=== PATIENT | female | born 1995 | race African-American/Black ===

== ENCOUNTER 2016-07-19 15:50 | Emergency (ER) | payer OTHER ==
[2016-07-19 16:16] VITALS: BP 111/97; PULSE 85; TEMP 98.3; BMI 25.7
--- NOTE | 2016-07-19 16:32 | PDOC ---
History of Present Illness <Becca Goodman - Last Filed: 07/19/16 21:22> - General History Source: Patient, Significant Other, Friend - History of Present Illness Initial Comments: 07/19/16 21:41 The patient is a 21 year old female, 7 weeks , accompanied by boyfriend and friend, with no significant past medical history, who presents to the emergency department today for further evaluation of cramping and vaginal bleeding secondary to taking an pill on Tuesday. The patient states that since Tuesday she had a change of heart and was hoping that the was not successful. The patient also notes that she has been taking a prescription of progesterone that she acquired online. The patient denies fever, chills, and sweats. The patient denies nausea, vomiting, and diarrhea. The patient denies chest pain, cough, and shortness of breath. PAST MEDICAL HISTORY: A1 PAST SURGICAL HISTORY: No significant history reported FAMILY HISTORY: No pertinent history reported SOCIAL HISTORY: None reported MEDICATIONS: Reviewed ALLERGIES: NKDA <Anthony Blair - Last Filed: 07/19/16 21:42> - General Chief Complaint: Vaginal Bleeding Stated Complaint: VAGINAL BLEEDING, 7 WKS Time Seen by Provider: 07/19/16 16:32 Past History - Past Medical History Anemia: No Asthma: No Cancer: No Cardiac Disorders: No Diabetes: No HTN: No Seizures: No Thyroid Disease: No - Reproductive History (#): 1 Para: 0 - Immunization History Immunization Up to Date: Yes - Psycho/Social/Smoking Cessation Hx Anxiety: No Suicidal Ideation: No Smoking Status: No Smoking History: Never smoked Have you smoked in the past 12 months: No Number of Cigarettes Smoked Daily: 0 Cigars Per Day: 0 Information on smoking cessation initiated: No Hx Alcohol Use: No Drug/Substance Use Hx: No Substance Use Type: None Hx Substance Use Treatment: No <Becca Goodman - Last Filed: 07/19/16 21:22> <Anthony Blair - Last Filed: 07/19/16 21:42> - Past Medical History Allergies/Adverse Reactions: Allergies Allergy/AdvReac Type Severity Reaction Status Date / Time No Known Allergies Allergy Verified 07/19/16 16:16 Home Medications: Ambulatory Orders Progesterone,Micronized [Progesterone] 200 mg PO DAILY 07/19/16 Review of Systems - Review of Systems Able to Perform ROS?: Yes Comments:: CONSTITUTIONAL: Absent: fever, chills, diaphoresis, generalized weakness, malaise, loss of appetite HEENT: Absent: rhinorrhea, nasal congestion, throat pain, throat swelling, difficulty swallowing, mouth swelling, ear pain, eye pain, visual Changes CARDIOVASCULAR: Absent: chest pain, syncope, palpitations, irregular heart rate, lightheadedness , peripheral edema RESPIRATORY: Absent: cough, shortness of breath, dyspnea with exertion, orthopnea, wheezing, stridor, hemoptysis GASTROINTESTINAL: Present: Abdominal cramping Absent: abdominal distension, nausea, vomiting, diarrhea, constipation, melena, hematochezia GENITOURINARY: Absent: dysuria, frequency, urgency, hesitancy, hematuria, flank pain, genital pain MUSCULOSKELETAL: Absent: myalgia, arthralgia, joint swelling SKIN: Absent: rash, itching, pallor HEMATOLOGIC/IMMUNOLOGIC: Present: Vaginal bleeding. Absent: easy bleeding, easy bruising, lymphadenopathy, frequent infections ENDOCRINE: Absent: unexplained weight gain, unexplained weight loss, heat intolerance, cold intolerance NEUROLOGIC: Absent: headache, focal weakness or paresthesias, dizziness, unsteady gait, seizure, mental status changes, bladder or bowel incontinence PSYCHIATRIC: Absent: anxiety, depression, suicidal or homicidal ideation, hallucinations. <Anthony Blair - Last Filed: 07/19/16 21:42> *Physical Exam - Vital Signs Last Vital Signs Temp Pulse Resp BP Pulse Ox 98.3 F 85 18 111/97 99 07/19/16 16:13 07/19/16 16:13 07/19/16 16:13 07/19/16 16:13 07/19/16 16:13 <Becca Goodman - Last Filed: 07/19/16 21:22> - Vital Signs Last Vital Signs Temp Pulse Resp BP Pulse Ox 98.3 F 85 18 111/97 99 07/19/16 16:13 07/19/16 16:13 07/19/16 16:13 07/19/16 16:13 07/19/16 16:13 - Physical Exam Comments: GENERAL: Well developed, well nourished. Awake and alert. No acute distress. HEENT: Normocephalic, atraumatic. PERRLA, EOMI. No conjunctival pallor. Sclera are non- icteric. Moist mucous membranes. Oropharynx is clear. NECK: Supple. Full ROM. No JVD. Carotid pulses 2+ and symmetric, without bruits. No thyromegaly. No lymphadenopathy. CARDIOVASCULAR: Regular rate and rhythm. No murmurs, rubs, or gallops. Distal pulses are 2+ and symmetric. PULMONARY: No evidence of respiratory distress. Lungs clear to auscultation bilaterally. No wheezing, rales or rhonchi. ABDOMINAL: Soft. Non-tender. Non-distended. No rebound or guarding. No organomegaly. Normoactive bowel sounds. MUSCULOSKELETAL Normal range of motion at all joints. No bony deformities or tenderness. No CVA tenderness. EXTREMITIES: No cyanosis. No clubbing. No edema. No calf tenderness. SKIN: Warm and dry. Normal capillary refill. No rashes. No jaundice. NEUROLOGICAL: Alert, awake, appropriate. Cranial nerves 2-12 intact. No deficits to light touch and temperature in face, upper extremities and lower extremities. No motor deficits in the in face, upper extremities and lower extremities. Normoreflexic in the upper and lower extremities. Normal speech. Toes are down-going bilaterally. Gait is normal without ataxia. PSYCHIATRIC: Cooperative. Good eye contact. Appropriate mood and affect. <Anthony Blair - Last Filed: 07/19/16 21:42> ED Treatment Course - LABORATORY CBC & Chemistry Diagram: 07/19/16 17:10 <Becca Goodman - Last Filed: 07/19/16 21:22> - LABORATORY CBC & Chemistry Diagram: 07/19/16 17:10 - ADDITIONAL ORDERS Additional order review: Laboratory Results 07/19/16 07/19/16 17:10 17:10 Beta HCG, Quant 68070.1 Blood Type O POSITIVE Antibody Screen Negative 07/19/16 17:10 RBC 4.08 MCV 93.1 MCHC 33.6 RDW 12.4 D MPV 7.4 L Neutrophils % 69.1 Lymphocytes % 21.1 D Monocytes % 6.4 Eosinophils % 2.4 D Basophils % 1.0 D - RADIOLOGY Radiograph Interpretation: 07/19/16 21:21 EXAM#: TYPE/EXAM: RESULT: [id number] US/ <14WKS US HISTORY PROVIDED: evaluation. Real time examination of the pelvis demonstrates the following: There is a single, live intrauterine with crown-rump measurements corresponding to a gestational age of 8 weeks. A heart rate of 171 BPM was calculated. The ovaries are normal in size and texture with a small right ovarian cyst measuring 2.3 x 1.7 x 1.8 cm. There is no evidence of adnexal masses or free pelvic fluid collections. IMPRESSION: Single, live intrauterine of 8 weeks gestational age. Reported By: Nelson Maharaj MD 07/19/162111 <nAthony Blair - Last Filed: 07/19/16 21:42> Medical Decision Making - Medical Decision Making 07/19/16 21:35 Patient was fully informed that she has a live fetus and that her was not successful. <Anthony Blair - Last Filed: 07/19/16 21:42> *DC/Admit/Observation/Transfer <Becca Goodman - Last Filed: 07/19/16 21:22> - Attestations Scribe Attestion: Documentation prepared by Anthony Blair, acting as medical office receptionist assistant for Dr. Becca Goodman MD. <Anthony Blair - Last Filed: 07/19/16 21:42> Diagnosis at time of Disposition: Threatened - Discharge Dispostion Disposition: HOME Condition at time of disposition: Stable - Patient Instructions Printed Discharge Instructions: DI for Threatened Additional Instructions: continue care with metal bumper
[2016-07-19 17:20] LABS: EOSINOPHIL 2.4 % (0-4.5); MCH 31.3 pg (25.7-33.7); MCHC 33.6 g/dl (32.0-36.0); MEAN CELL VOLUME 93.1 fl (80-96); MEAN PLT VOLUME 7.4 fl (7.5-11.1); NEUTROPHILS 69.1 % (42.8-82.8); PLATELET COUNT 295 K/MM3 (134-434); RDW 12.4 % (11.6-15.6); WHITE BLOOD COUNT 12.5 K/mm3 (4.0-10.0)
== END 2016-07-19 21:55 | disposition home or self-care (01) ==
LOC: JER 15:50
DX: O20.0 Threatened abortion (principal); Z3A.01 Less than 8 weeks gestation of pregnancy
CPT/HCPCS: 36415; 76801-TC; 84702; 85025; 86850; 86900; 86901; 99282-25

== ENCOUNTER 2016-07-25 13:18 | Emergency (ER) | payer OTHER ==
[2016-07-25 13:36] VITALS: BMI 26.2
[2016-07-25 14:46] LABS: BASOPHIL 0.9 % (0-2.0); EOSINOPHIL 1.2 % (0-4.5); MCHC 33.3 g/dl (32.0-36.0); MEAN CELL VOLUME 93.1 fl (80-96); MEAN PLT VOLUME 6.9 fl (7.5-11.1); NEUTROPHILS 74.5 % (42.8-82.8); PLATELET COUNT 246 K/MM3 (134-434); WHITE BLOOD COUNT 12.1 K/mm3 (4.0-10.0)
[2016-07-25 15:02] LABS: ALBUMIN 3.6 g/dl (3.4-5.0); ALK PHOS 63 U/L (45-117); ANION GAP 12 (8-16); BILIRUBIN,TOTAL 0.3 mg/dL (0.2-1.0); CALCIUM 9.2 mg/dL (8.5-10.1); CO2 25 mmol/L (21-32); COCKROFT - GAULT 153.1445; CREATININE 0.6 mg/dL (0.55-1.02); GLUCOSE,RANDOM 62 mg/dL (74-106); SGOT/AST 17 U/L (15-37); SGPT/ALT 29 U/L (12-78); TOT PROT 6.4 g/dl (6.4-8.2)
--- NOTE | 2016-07-25 16:23 | PDOC ---
History of Present Illness - General Chief Complaint: Vaginal Bleeding Stated Complaint: BLEEDING 8 WEEKS Time Seen by Provider: 07/25/16 13:39 - History of Present Illness Initial Comments: 07/25/16 16:22 CHIEF COMPLAINT: vag discharge, 8 wks preg HISTORY OF PRESENT ILLNESS: 21 yo F with no PMH presents to ED with foul smelling vaginal discharge x 4 days. Patient reports that she had a retained tampon a few weeks prior and had it removed at another hospital and was "given a cream" but no other medications. Patient also reports that she had taken " the pill" 8 days ago but then on the same day started taking progesterone "to keep the baby." She reports that she was supposed to get an ultrasound on August 16 per her OB but she didn't want to wait any longer "because the smell was too bad." She denies any vaginal bleeding, cramping, abdominal pain, nausea, or vomiting. No recent travel or sick contacts. PAST MEDICAL HISTORY: Denies past medical history FAMILY HISTORY: Denies SOCIAL HISTORY: Denies tobacco, alcohol, illicit drug use. SURGICAL HISTORY: Denies ALLERGIES: No known drug allergies REVIEW OF SYSTEMS General/Constitutional: Denies fever or chills. Denies weakness, weight change. HEENT: Denies change in vision. Denies ear pain or discharge. Denies sore throat. Cardiovascular: Denies chest pain or shortness of breath. Respiratory: Denies cough, wheezing, or hemoptysis. Gastrointestinal: Denies nausea, vomiting, diarrhea or constipation. Denies rectal bleeding. Genitourinary: "Foul smelling discharge." Denies dysuria, frequency, or change in urination. Musculoskeletal: Denies joint or muscle swelling or pain. Denies neck or back pain. Skin and breasts: Denies rash or easy bruising. Neurologic: Denies headache, vertigo, loss of consciousness, or loss of sensation. PHYSICAL EXAM General Appearance: Well-appearing, appropriately dressed. No apparent distress , no intoxication. HEENT: EOMI, PERRLA, normal ENT inspection, normal voice, TMs normal, pharynx normal. No conjunctival pallor. No photophobia, scleral icterus. Neck: Supple. Trachea midline. No tenderness, rigidity, carotid bruit, stridor , lymphadenopathy, or thyromegaly. Respiratory/Chest: Lungs CTAB. No shortness of breath, chest tenderness, respiratory distress, accessory muscle use. No crackles, rales, rhonchi, stridor , wheezing, dullness Cardiovascular: RRR. S1, S2. No JVD, murmur, bradycardia, tachycardia. Vascular Pulses: Dorsalis-Pedis (R): 2+, Dorsalis-Pedis (L): 2+ Gastrointestinal/Abdominal: Normal bowel sounds. Abdomen soft, non-distended. No tenderness or rebound tenderness. No organomegaly, pulsatile mass, guarding , hernia, hepatomegaly, splenomegaly. Pelvic: External genitalia normal without lesions. Vaginal vault with malodorous, light pink/brown discharge. Cervix is long and closed. No cervical motion tenderness. Uterus is nontender and normal in size. Adnexa are nontender and without masses. Lymphatic: No adenopathy, tenderness. Musculoskeletal/Extremities: Normal inspection. FROM of all extremities, normal capillary refill. Pelvis Stable. No CVA tenderness. No tenderness to extremities, pedal edema, swelling, erythema or deformity. Integumentary: Appropriate color, dry, warm. 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 Fully oriented, alert. Appropriate mood/affect. Motor strength 5/5. No appreciable EOM palsy, facial droop or sensory deficit. Past History - Past Medical History Allergies/Adverse Reactions: Allergies Allergy/AdvReac Type Severity Reaction Status Date / Time No Known Allergies Allergy Verified 07/25/16 13:36 Home Medications: Ambulatory Orders Progesterone,Micronized [Progesterone] 200 mg PO DAILY 07/19/16 Metronidazole [Flagyl -] 500 mg PO DAILY #14 tablet 07/25/16 Anemia: No Asthma: No Cancer: No Cardiac Disorders: No Diabetes: No HTN: No Seizures: No Thyroid Disease: No - Reproductive History Is Patient Now?: Yes (#): 2 Para: 1 - Immunization History Immunization Up to Date: Yes - Psycho/Social/Smoking Cessation Hx Anxiety: No Suicidal Ideation: No Smoking Status: No Smoking History: Never smoked Have you smoked in the past 12 months: No Number of Cigarettes Smoked Daily: 0 Cigars Per Day: 0 Hx Alcohol Use: No Drug/Substance Use Hx: No Substance Use Type: None Hx Substance Use Treatment: No *Physical Exam - Vital Signs Last Vital Signs Temp Pulse Resp BP Pulse Ox 98.0 F 104 H 20 144/50 99 07/25/16 13:32 07/25/16 13:32 07/25/16 13:32 07/25/16 13:32 07/25/16 13:32 ED Treatment Course - LABORATORY CBC & Chemistry Diagram: 07/25/16 14:30 07/25/16 14:30 - ADDITIONAL ORDERS Additional order review: Laboratory Results 07/25/16 07/25/16 07/25/16 14:30 14:30 14:30 Sodium 140 Potassium 4.0 Chloride 103 Carbon Dioxide 25 Anion Gap 12 BUN 9 Creatinine 0.6 D Creat Clearance w eGFR > 60 Random Glucose 62 L D Calcium 9.2 Total Bilirubin 0.3 AST 17 D ALT 29 D Alkaline Phosphatase 63 Total Protein 6.4 Albumin 3.6 Beta HCG, Quant 207206.9 Blood Type O POSITIVE Antibody Screen Negative 07/25/16 14:30 RBC 4.11 MCV 93.1 MCHC 33.3 RDW 12.0 MPV 6.9 L Neutrophils % 74.5 Lymphocytes % 17.5 Monocytes % 5.9 Eosinophils % 1.2 Basophils % 0.9 - RADIOLOGY Radiology Studies Ordered: Category Date Time Status TRANSVAGINAL US PREG [US] Stat Ultrasound 07/25/16 14:13 Taken Medical Decision Making - Medical Decision Making 07/25/16 18:13 21 yo F with no PMH presents to ED with foul smelling vaginal discharge x 4 days. -CBC, CMP, T&S -Transvaginal US 07/25/16 18:13 Discussed ultrasound results with radiology MD Scales. IUP confirmed, 9 week gestation. Clinical presentation consistent with BV. Will treat with Flagyl 500 bid x 1 week. Advised patient to take meds as prescribed and follow up with OB by the end of the week. Referral for OB provided as patient reports she would like to change OBS. Advised patient of signs and symptoms for return to ER; patient verbalized understanding and agrees to plan *DC/Admit/Observation/Transfer Diagnosis at time of Disposition: Bacterial vaginosis - Discharge Dispostion Disposition: HOME Condition at time of disposition: Stable Admit: No - Prescriptions Prescriptions: Metronidazole [Flagyl -] 500 mg PO DAILY #14 tablet - Referrals Referrals: Patti Tran MD [Primary Care Provider] - Arsh Seth MD [Staff Physician] - - Patient Instructions Printed Discharge Instructions: DI for Bacterial Vaginosis Additional Instructions: Please take medication as prescribed and follow up with gynecology as discussed. If you experience any abdominal pain, chest pain, shortness of breath, palpitations, vaginal bleeding, or any new or worsening symptoms, please return to the ER.
[2016-07-25] MEDS ORDERED: metroNIDAZOLE 500 MG TABLET PO ONE (17:02)
[2016-07-25] MEDS ORDERED: metroNIDAZOLE 250 MG TABLET ONE (17:07)
[2016-07-25 17:51] VITALS: BP 123/78; PULSE 98; TEMP 97.9
== END 2016-07-25 17:15 | disposition home or self-care (01) ==
LOC: JER 13:18
DX: O23.592 Infection of other part of genital tract in pregnancy, second trimester (principal); N76.0 Acute vaginitis; B96.89 Other specified bacterial agents as the cause of diseases classified elsewhere; Z3A.09 9 weeks gestation of pregnancy
CPT/HCPCS: 36415; 76817-TC; 80053; 84702; 85025; 86850; 86900; 86901; 87070; 87205; 99281-25

== ENCOUNTER 2017-01-05 14:31 | Emergency (ER) | payer OTHER ==
[2017-01-05 14:36] VITALS: BMI 31.5
[2017-01-05 16:09] LABS: URINE APPEARANCE SLCLOUDY; URINE BILIRUBIN NEGATIVE (NEGATIVE); URINE BLOOD NEGATIVE (NEGATIVE); URINE COLOR YELLOW; URINE GLUCOSE (UA) NEGATIVE (NEGATIVE); URINE KETONE NEGATIVE (NEGATIVE); URINE NITRITE NEGATIVE (NEGATIVE); URINE PROTEIN NEGATIVE (NEGATIVE)
[2017-01-05 16:35] VITALS: BP 115/71; PULSE 111; TEMP 99.1
[2017-01-05 18:37] LABS: URINE LEUK ESTERASE 2+ (NEGATIVE)
[2017-01-05 19:53] LABS: URINE BACTERIA MODERATE /hpf (NEGATIVE); URINE RBC 0-2 /hpf (0-3)
== END 2017-01-05 16:40 | disposition home or self-care (01) ==
LOC: JER 14:31
DX: O26.893 Other specified pregnancy related conditions, third trimester (principal)
CPT/HCPCS: 81003; 81015; 87086; 99281-25

== ENCOUNTER 2017-02-22 19:40 | Inpatient (IN) | payer OTHER ==
[2017-02-22 21:48] LABS: URINE MARIJUANA THC NEGATIVE ng/ml (CUTOFF=50)
[2017-02-22 23:31] LABS: BASO % 0.6 % (0-2.0); EOS % 2.3 % (0-4.5); MCH 30.7 pg (25.7-33.7); MCHC 33.5 g/dl (32.0-36.0); MEAN CELL VOLUME 91.6 fl (80-96); MEAN PLT VOLUME 7.7 fl (7.5-11.1); NEUT % 75.3 % (42.8-82.8); PLATELET COUNT 240 K/MM3 (134-434); WHITE BLOOD COUNT 11.3 K/mm3 (4.0-10.0)
[2017-02-22] MEDS ORDERED: DEXTROSE 5%-LACTATED RINGERS 1,000 ML IV SCH (23:45)
[2017-02-22 23:46] LABS: INR 0.96 (0.82-1.09); PROTHROMBIN TIME (PATIENT) 10.9 SEC (9.98-11.88)
[2017-02-22 23:48] LABS: ACTIVATED PTT 23.5 SECONDS (26.9-34.4)
[2017-02-22] MEDS ORDERED: BUTORPHANOL TARTRATE 1 MG/ML VIAL IVPB ONE (23:50)
[2017-02-22] MEDS ORDERED: PROMETHAZINE HCL 25 MG/1 ML VIAL IVPUSH ONE (23:50)
[2017-02-22 23:52] LABS: ANION GAP 13 (8-16); CALCIUM 8.8 mg/dL (8.5-10.1); CO2 24 mmol/L (21-32); CREATININE 0.4 mg/dL (0.55-1.02); GLUCOSE,RANDOM 70 mg/dL (74-106)
--- NOTE | 2017-02-23 00:02 | HP ---
Past Medical History - Primary Care Physician PCP:: Mine Avila - Admission Chief Complaint: 21 yrs , 39.1/7 weeks in early labor, brought by ambulence . onset of LP since 5.00 Pm 02/22/17 History of Present Illness: care at [facility] with [facility] wt gain 52 lbs h/o taking castor oil today po in afternoon, after that she started feeling contractions work Up : O Pos, Hbsag neg, Rubella pos, Rpr nr, Hiv neg, Sickle neg, Pap Nilm , 1 hr gtt 107, g/c/ct neg, Gbs neg . Quantiferon not seen songcandy last done on January, not available for review h/o Marijuana pos on urine drug screen in 07/2016, negative in . 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 No: Gastritis Renal/: No: UTI ...: 3 ...Para: 1 (1 01/16/2013, 6'12" ) ...Term: 1 ...: 0 ...Spon : 0 ...Induced : 1 (04/2013 ) ...LMP: 05/24/16 ... Weeks Gestation by Dates: 39.1 ...EDC by Dates: 02/28/17 ...EDC by Sono: 02/28/17 (39.1 weeks ) Heme/Onc: Yes: Anemia. No: Sickle Cell Trait Infectious Disease: Yes: STD's (h/o chlamydia pos during 1st ) Psych: No: Addictions, Anxiety, Bipolar, Depression Endocrine: No: Diabetes Mellitus, Hypothyroidism - Past Surgical History Past Surgical History: Yes: None Hx Myomectomy: No Hx Transabdominal Cerclage: No - Smoking History Smoking history: Never smoked Have you smoked in the past 12 months: No Aproximately how many cigarettes per day: 0 - Alcohol/Substance Use Hx Alcohol Use: No History of Substance Use: reports: Marijuana (July 2016 last used) - Social History History of Recent Travel: No Home Medications - Allergies Allergies/Adverse Reactions: Allergies Allergy/AdvReac Type Severity Reaction Status Date / Time No Known Allergies Allergy Verified 01/05/17 14:36 - Home Medications Home Medications: Ambulatory Orders One Tablet 1 tablet PO DAILY 02/22/17 Physical Exam - Maternity Vital Signs: Vital Signs Temperature 98.0 F 02/22/17 20:09 Pulse Rate 100 H 02/22/17 20:09 Respiratory Rate 20 02/22/17 20:09 Blood Pressure 135/85 02/22/17 20:09 O2 Sat by Pulse Oximetry (%) Selected Entries 02/22/17 20:09 Weight 195 lb Constitutional: Yes: Well Nourished, Moderate Distress Eyes: Yes: WNL HENT: Yes: WNL, Normocephalic Neck: Yes: WNL Cardiovascular: Yes: WNL, Regular Rate and Rhythm Lungs: Clear to auscultation Breast(s): Yes: WNL. No: Mass - Abdominal Exam/OB Fundal Height: 38 Number of Fetuses: Single Presentation: Vertex Contractions: Yes Regularity: Regular (3-4 min) Intensity: Moderate Monitor Mode: External Heart Rate (range): 150-160 Heart Rate Location: [facility] Category: I Accelerations: Uniform Decelerations: None - Vaginal Exam/OB Vaginal Bleediing: No Speculum Exam: No Dilatation (cm): 3 Effacement (%): 65% Amniotic Membrane Status: Intact Presentation: Vertex/Position Station: -3 - Physical Exam Musculoskeletal: Yes: WNL Extremities: Yes: WNL Edema: Yes Edema: LLE: 1+, RLE: 1+ Integumentary: Yes: Tattoos Deep Tendon Reflex Grade: Normal +2 ...Motor Strength: WNL Psychiatric: Yes: WNL, Alert, Oriented - Labs Lab Results: CBC, BMP 02/22/17 23:25 Laboratory Tests 02/22/17 02/22/17 02/22/17 20:20 23:25 23:25 PT with INR 10.90 INR 0.96 PTT (Actin FS) 23.5 L Sodium 143 Potassium 3.4 L Chloride 106 Carbon Dioxide 24 BUN 3 L D Creatinine 0.4 L D Random Glucose 70 L Calcium 8.8 Urine Protein Opiates Screen Negative Methadone Screen Negative Barbiturate Screen Negative Phencyclidine Screen Negative Ur Amphetamines Screen Negative MDMA (Ecstasy) Screen Negative Benzodiazepines Screen Negative Cocaine Screen Negative U Marijuana (THC) Screen Negative 02/23/17 01:10 PT with INR INR PTT (Actin FS) Sodium Potassium Chloride Carbon Dioxide BUN Creatinine Random Glucose Calcium Urine Protein Negative Opiates Screen Methadone Screen Barbiturate Screen Phencyclidine Screen Ur Amphetamines Screen MDMA (Ecstasy) Screen Benzodiazepines Screen Cocaine Screen U Marijuana (THC) Screen Problem List - Problems (1) with 39 completed weeks gestation Code(s): Z3A.39 - 39 WEEKS GESTATION OF (2) Labor established Code(s): BVT9150 - Assessment/Plan 39.1 weeks in early labor, pt in discomfort Plan Iv Fluids stadol + phenrgan prn for labor analgesia followed by epidural analgesia prn Pitocin augmentation prn Trial of vaginal delivery
[2017-02-23 00:07] VITALS: BMI 35.6
[2017-02-23] MEDS ORDERED: TUBERCULIN PPD 5 TU/0.1ML SYRINGE (IN PATIENT USE ONLY) ID ONE (01:15)
[2017-02-23 01:55] LABS: URINE APPEARANCE SLCLOUDY; URINE BILIRUBIN NEGATIVE (NEGATIVE); URINE BLOOD NEGATIVE (NEGATIVE); URINE COLOR LTYELLOW; URINE GLUCOSE (UA) 1+ (NEGATIVE); URINE KETONE NEGATIVE (NEGATIVE); URINE NITRITE NEGATIVE (NEGATIVE); URINE PROTEIN NEGATIVE (NEGATIVE); URINE UROBILINOGEN NEGATIVE mg/dL (0.2-1.0)
[2017-02-23 01:56] LABS: URINE LEUK ESTERASE 1+ (NEGATIVE)
[2017-02-23 02:06] LABS: URINE BACTERIA RARE /hpf (NONE SEEN); URINE MUCUS RARE; URINE RBC 1 /hpf (0-3); URINE WBC 2 /hpf (3-5)
[2017-02-23] MEDS ORDERED: PROMETHAZINE HCL 25 MG/1 ML VIAL ONE (02:24)
[2017-02-23] MEDS ORDERED: BUTORPHANOL TARTRATE 1 MG/ML VIAL ONE ×2 (02:24)
[2017-02-23] MEDS ORDERED: OXYTOCIN 15 UNITS/ LR 250 ML 15 UNIT/250 ML INFUS.BAG IVPB ONE (02:46)
[2017-02-23] MEDS ORDERED: OXYTOCIN 15 UNITS/ LR 250 ML 15 UNIT/250 ML INFUS.BAG IVPB SCH (03:00)
[2017-02-23] MEDS ORDERED: FENTANYL/BUPIVACAINE/NS/PF - PCEA - 50 ML DISP.SYRIN EP ONE ×2 (04:51→10:09)
[2017-02-23] MEDS ORDERED: ELECTROLYTE-148 SOLN 1,000 ML IV SCH (05:00)
[2017-02-23] MEDS ORDERED: FENTANYL/BUPIVACAINE/NS/PF - PCEA - 50 ML DISP.SYRIN EP SCH (05:15)
--- NOTE | 2017-02-23 07:05 | PN ---
Progress Note, Labor Vaginal Exam #1 Labor Exam Date: 02/23/17 Labor Exam Time: 05:45 Heart Rate (range): 140 Dilatation: 5 Effacement (%): 90 Amniotic Membrane Status: Intact Station: -3 Remarks: FHR cat -1 UC irregular 4-6 min 2,25 AM stadol 2 mg + Phenrgan 25 MG stat was given 2.55AM Pitocin Augmentation was started 5.15 Am epidural labor analgesia was given but ineffective 6.25 AM Epidural revised ,& effective Selected Entries 02/23/17 02/23/17 02/23/17 06:00 06:05 06:15 Temperature 97.9 F Pulse Rate 97 H 97 H Blood Pressure 134/93 124/76 02/23/17 06:30 Temperature Pulse Rate 102 H Blood Pressure 112/78 Vaginal Exam #2 Labor Exam Date: 02/23/17 Labor Exam Time: 07:05 Heart Rate (range): 150 Dilatation: 5-6 Effacement (%): 80 Amniotic Membrane Status: Ruptured (AROM clear) Presentation: Vertex/Position Station: -2 Remarks: FHR cat-1 UC 3-4 min irregular, mild-moderate pitocin 6ml/hr Vaginal Exam #3 Labor Exam Date: 02/23/17 Labor Exam Time: 09:00 Heart Rate (range): 140-150 Dilatation: 7-8 Effacement (%): 80 Amniotic Membrane Status: Ruptured Presentation: Vertex/Position Station: 0 Remarks: fhr cat-1 uc q 2-3 min Selected Entries 02/23/17 08:25 Pulse Rate 110 H Blood Pressure 131/79 Vaginal Exam #4 Labor Exam Date: 02/23/17 Labor Exam Time: 10:40 Heart Rate (range): 130-140 Dilatation: 10 Effacement (%): 100 Amniotic Membrane Status: Ruptured Presentation: Vertex/Position Station: +3 Remarks: ffhr -cat-1 uc 2-3 min pt pushing
[2017-02-23] MEDS ORDERED: LIDOCAINE HCL 1% PRESERVATIVE FREE - 30ML VIAL ONE (08:35)
[2017-02-23] MEDS ORDERED: OXYTOCIN 20 UNITS in 0.9% NS 40 UNIT/2,000 ML INFUS.BAG IV ONE (08:36)
[2017-02-23 09:24] LABS: URINE LEUK ESTERASE TRACE (NEGATIVE)
[2017-02-23] MEDS ORDERED: BENZOCAINE 20% 57 GM BOTTLE TP PRN (11:18)
[2017-02-23] MEDS ORDERED: METHYLERGONOVINE MALEATE 0.2 MG/1 ML AMP IM PRN (11:18)
[2017-02-23] MEDS ORDERED: BISACODYL 10 MG SUPP.RECT RC PRN (11:18)
[2017-02-23] MEDS ORDERED: BENZOCAINE 28 GM HEMORRHOIDAL OINTMENT TP PRN (11:18)
[2017-02-23] MEDS ORDERED: oxyCODONE HCL 5 MG TABLET PO PRN (11:18)
[2017-02-23] MEDS ORDERED: WITCH HAZEL 50% (TUCKS) 40 PAD/JAR PAD TP PRN (11:18)
[2017-02-23] MEDS ORDERED: OXYTOCIN 20 UNITS in 0.9% NS 20 UNIT/1,000 ML INFUS.BAG IV SCH (11:30)
[2017-02-23] MEDS: IBUPROFEN 600 MG TABLET (FP) PO PRN (16:49)
[2017-02-23] MEDS: ACETAMINOPHEN 325 MG TABLET (FP) PO PRN (16:51)
[2017-02-23] MEDS: FERROUS SO4 325 MG TABLET (FP) PO SCH (16:52)
[2017-02-24] MEDS: ACETAMINOPHEN 325 MG TABLET (FP) PO PRN ×4 (03:15→20:39)
[2017-02-24] MEDS: IBUPROFEN 600 MG TABLET (FP) PO PRN ×4 (03:20→20:38)
[2017-02-24 08:35] LABS: BASO % 0.3 % (0-2.0); EOS % 2.1 % (0-4.5); MCH 30.6 pg (25.7-33.7); MCHC 33.2 g/dl (32.0-36.0); MEAN CELL VOLUME 92.1 fl (80-96); MEAN PLT VOLUME 7.4 fl (7.5-11.1); NEUT % 69.5 % (42.8-82.8); PLATELET COUNT 201 K/MM3 (134-434); RDW 13.1 % (11.6-15.6); WHITE BLOOD COUNT 11.4 K/mm3 (4.0-10.0)
[2017-02-24] MEDS: FERROUS SO4 325 MG TABLET (FP) PO SCH ×2 (09:14→17:47)
[2017-02-24] MEDS: PRENATAL VITAMINS W/ FOLIC ACID TABLET (FP) PO SCH (09:14)
--- NOTE | 2017-02-24 12:08 | PN ---
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 - 1 Minute Total Score: 9 5 Minutes Total Score: 9 - [place] Feeding Plan Initial Plan: Elected not to breastfeed exclusively throughout hospitalization Remarks - Remarks Remarks: 21 yrs 39.1/7 weeks admitted in early labor . GBS neg pnc at [facility] . stadol 2 mg + phenergan 25 mg iv followed by Epidural labor analgesia was given. Pitocin Augmentation also given Intrapartum course was uneventful
--- NOTE | 2017-02-24 12:18 | DS ---
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: Vital Signs Temperature 97.9 F 02/24/17 06:00 Pulse Rate 78 02/24/17 06:00 Respiratory Rate 20 02/24/17 06:00 Blood Pressure 133/89 02/24/17 06:00 O2 Sat by Pulse Oximetry (%) 100 02/23/17 10:25 Selected Entries 02/25/17 09:47 Temperature 98 F Pulse Rate 64 Blood Pressure 112/64 Constitutional: Yes: Well Nourished Eyes: Yes: WNL HENT: Yes: WNL Neck: Yes: WNL Cardiovascular: Yes: WNL Respiratory: Yes: WNL Gastrointestinal: Yes: WNL ...Rectal Exam: Yes: WNL Renal/: Yes: WNL Pelvis: Yes: WNL External Genitalia: Yes: Normal ....Post : Yes: Uterus firm, Uterus non-tender, Moderate lochia rubra ( perineum intact. 1st degree laceration healing) Breast(s): Yes: WNL Musculoskeletal: Yes: WNL Extremities: Yes: WNL. No: Calf Tenderness Edema: No Integumentary: Yes: WNL Neurological: Yes: WNL ...Motor Strength: WNL Psychiatric: Yes: WNL Labs: CBC, BMP 02/24/17 08:00 02/22/17 23:25 Delivery - Delivery Vaginal Delivery: No Problems, Spontaneous Type of Anesthesia: Local, Epidural Episiotomy/Laceration: 1st degree (laceration inner left labium minus , interrupted suture taken with vicryl #3/0 under local anesthesia) EBL (cc): 300 Delivery, Single - Stages of Labor Date 1st Stage Initiatied: 02/23/17 Time 1st Stage Initiated: 04:50 Date 2nd Stage Initiated: 02/23/17 Time 2nd Stage Initiated: 10:40 Date of Delivery: 02/23/17 Time of Delivery: 10:52 Time Placenta Delivered: 10:55 Placenta: Yes: Spontaneous, Uterine Exploration - 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 - 1 Minute Total Score: 9 5 Minutes Total Score: 9 - [place] Feeding Plan Initial Plan: Elected not to breastfeed exclusively throughout hospitalization Remarks - Remarks Remarks: 21 yrs 39.1/7 weeks admitted in early labor . GBS neg pnc at [facility] . stadol 2 mg + phenergan 25 mg iv followed by Epidural labor analgesia was given. Pitocin Augmentation also given Intrapartum course was uneventful . pp course uneventful. anemia counselled discharge Discharge Summary Reason For Visit: ADMIT LABOR Current Active Problems Labor established (Acute) Normal spontaneous vaginal delivery (Acute) with 39 completed weeks gestation (Acute) Condition: Stable - Instructions Diet, Activity, Other Instructions: Post Instructions DIET: Continue good diet high in protein, calcium, and iron rich foods. Drink at least eight (8) glasses of water daily in addition to other fluids. ct Regular diet MEDICATIONS: Continue vitamins and iron as previously directed. Motrin and Tylenol may be taken for minor discomfort. ACTIVITY: Mild to moderate exercise may be started in two (2) weeks. Take frequent rest periods. Resume normal activity after six (6) week check up. WOUND CARE OF OPERATIVE SITE: Continue use of perineal bottle until vaginal discharge stops. Keep area clean. Shower daily. Keep abdominal wound dry. Report any drainage or redness to physician. Tub baths, tampons and douches are not permitted for [address] Breast feeding & or Bottle feeding BREAST CARE: (For those that are not breast feeding): If engorgement occurs: Wear tight fitting bra. Take Tylenol or Motrin for pain. Apply cold packs (ice in bags to each breast ) FAMILY PLANNING: There are many control alternatives to pursue and they should be discussed at your first office visit. You may resume sexual activity after your six (6) week check up. (Remember, breast feeding is not a contraceptive) NEXT PHYSICIAN APPOINTMENT: Be certain to call for a six (6) week appointment, unless otherwise directed. . [facility] or [address] [place] [address] ( [phone]) for follow up Call for appointment . Call Clinic or got to Emergency Dept if you have any of the following: Heavy vaginal bleeding Painful urination Leg pain Unusual odor noted to vaginal bleeding High fever Red streaking noted on breast Referrals: Mine Avila MD [Staff Physician] - Disposition: HOME - Home Medications Comprehensive Discharge Medication List: Ambulatory Orders One Tablet 1 tablet PO DAILY 02/22/17 Acetaminophen [Tylenol .Regular Strength -] 650 mg PO Q3H PRN tablet 02/24/17 Ferrous Sulfate [Feosol] 325 mg PO BIDWM #60 tab 02/24/17 Ibuprofen [Motrin -] 200 mg PO Q4H PRN tablet 02/24/17 Vitamins (Sjr) - 1 tab PO DAILY tablet 02/24/17
[2017-02-24] MEDS ORDERED: SENNOSIDES/DOCUSATE COMBO (SENNA PLUS) TABLET (UD) PO PRN (22:00)
[2017-02-25] MEDS: IBUPROFEN 600 MG TABLET (FP) PO PRN ×2 (00:50→06:30)
[2017-02-25] MEDS: ACETAMINOPHEN 325 MG TABLET (FP) PO PRN ×2 (00:50→06:31)
--- NOTE | 2017-02-25 08:26 | PN ---
Progress Note (short form) - Note Progress Note: ppd 2 doing well, no excess vaginal bleeding, voids ok CBC, BMP 02/24/17 08:00 02/22/17 23:25 Last Vital Signs Temp Pulse Resp BP Pulse Ox 97.4 F L 67 20 128/83 100 02/24/17 22:00 02/24/17 22:00 02/24/17 22:00 02/24/17 22:00 02/23/17 10:25 uterus firm, non tender lochia mild no calf tenderness plan d/c home om po iron ,vit rtc 4 weeks
[2017-02-25] MEDS: PRENATAL VITAMINS W/ FOLIC ACID TABLET (FP) PO SCH (09:36)
[2017-02-25] MEDS: FERROUS SO4 325 MG TABLET (FP) PO SCH (09:36)
[2017-02-25 09:51] VITALS: BP 112/64; PULSE 64; TEMP 98
== END 2017-02-25 10:30 | disposition home or self-care (01) | DRG 560 ==
LOC: JDEL 19:40 → JLDR 23:05 → J3W 02-23 13:16
PROVIDERS: ADMIT Obstetrics & Gynecology; ATTEND Obstetrics & Gynecology
PROC: 10E0XZZ Delivery of Products of Conception, External Approach (ICD-10-PCS; principal; 2017-02-24)
PROC: 0HQ9XZZ Repair Perineum Skin, External Approach (ICD-10-PCS; 2017-02-24)
DX: O99.013 Anemia complicating pregnancy, third trimester (principal); D50.9 Iron deficiency anemia, unspecified; O70.0 First degree perineal laceration during delivery; Z3A.39 39 weeks gestation of pregnancy; Z37.0 Single live birth
CPT/HCPCS: 36415; 59409; 80048; 80307; 81003; 81015; 85025; 85610; 85730; 86593; 86850; 86900; 86901

== ENCOUNTER 2017-03-03 15:00 | Inpatient (IN) | payer OTHER ==
[2017-03-03 16:29] LABS: URINE APPEARANCE SLCLOUDY; URINE BILIRUBIN NEGATIVE (NEGATIVE); URINE BLOOD 3+ (NEGATIVE); URINE COLOR YELLOW; URINE GLUCOSE (UA) NEGATIVE (NEGATIVE); URINE KETONE NEGATIVE (NEGATIVE); URINE NITRITE NEGATIVE (NEGATIVE)
[2017-03-03 16:58] LABS: URINE PROTEIN 1+ (NEGATIVE)
[2017-03-03 16:59] LABS: URINE LEUK ESTERASE 2+ (NEGATIVE)
[2017-03-03 17:30] LABS: BASO % 0.4 % (0-2.0); EOS % 4.7 % (0-4.5); HEMATOCRIT 40.1 % (32.4-45.2); HEMOGLOBIN 13.1 GM/dL (10.7-15.3); LYMPH % 18.5 % (8-40); MCH 30.6 pg (25.7-33.7); MCHC 32.8 g/dl (32.0-36.0); MEAN CELL VOLUME 93.2 fl (80-96); MEAN PLT VOLUME 7.5 fl (7.5-11.1); NEUT % 70.4 % (42.8-82.8); PLATELET COUNT 352 K/MM3 (134-434); RDW 13.3 % (11.6-15.6); WHITE BLOOD COUNT 9.1 K/mm3 (4.0-10.0)
[2017-03-03] MEDS ORDERED: DEXTROSE 5%-0.45% SALINE 1,000 ML IV SCH (17:30)
[2017-03-03] MEDS ORDERED: MAGNESIUM 4GM/H20 - 4 GM/100 ML IVPB IVPB ONE (17:44)
[2017-03-03] MEDS: MAGNESIUM 4GM/H20 - 4 GM/100 ML IVPB IVPB SCH (17:45)
[2017-03-03 17:48] LABS: INR 1.06 (0.82-1.09)
[2017-03-03 17:51] LABS: ACTIVATED PTT 30.7 SECONDS (26.9-34.4)
[2017-03-03 17:55] LABS: ANION GAP 8 (8-16); BLOOD UREA NITROGEN 8 mg/dL (7-18); CHLORIDE 107 mmol/L (98-107); CO2 28 mmol/L (21-32); CREATININE 0.7 mg/dL (0.55-1.02); GLUCOSE,RANDOM 118 mg/dL (74-106); POTASSIUM 3.5 mmol/L (3.5-5.1); SODIUM 143 mmol/L (136-145)
[2017-03-03] MEDS: MAGNESIUM SULFATE 20GM/500ML - 20 GM/500 ML INFUS.BAG IVPB SCH (18:15)
[2017-03-03 18:18] LABS: CALCIUM 8.7 mg/dL (8.5-10.1)
[2017-03-03 18:23] LABS: URIC ACID 6.7 mg/dL (2.6-7.2)
[2017-03-03] MEDS ORDERED: MAGNESIUM 4GM/H20 - 4 GM/100 ML IVPB IVPB SCH (18:45)
[2017-03-03] MEDS: LABETALOL HCL 200 MG TABLET (FP) PO PRN (18:50)
[2017-03-03] MEDS ORDERED: LABETALOL HCL 200 MG TABLET (FP) ONE (18:51)
[2017-03-03 18:58] VITALS: BMI 31.2
[2017-03-03 19:15] LABS: URINE AMPHETAMINES NEGATIVE ng/ml (CUTOFF=500); URINE BARBITURATES NEGATIVE ng/ml (CUTOFF=200); URINE BENZODIAZEPINES NEGATIVE ng/ml (CUTOFF=200)
[2017-03-03 19:16] LABS: COCAINE, UR NEGATIVE ng/ml (CUTOFF=300); METHADONE, UR NEGATIVE ng/ml (CUTOFF=300); OPIATES, URI NEGATIVE ng/ml (CUTOFF=300); PHENCYCLIDINE,URINE NEGATIVE ng/ml (CUTOFF=25)
--- NOTE | 2017-03-03 19:19 | HP ---
Past Medical History - Primary Care Physician PCP:: Mine Avila - Admission Chief Complaint: 21 yrs , s/p on 02/23/17 , sent from the clinic due to high BP for evaluation History of Present Illness: pt c/o severe pounding headache since 02/28/17.. no c/o vomiting, epigastric pain, blurred vision . pt denies h/o substance abuse she took po Tylenol, headache persisited , [facility] was sent to [address] [place] [address] , she was transferred to L&D 02/23/17 at 10.52 AM, baby girl, 9/9 , wt 8'3" , 1st degree laceration sutured . Intrapartum she received stadol 2mg + phenrgan 25 mg iv followed by epidural labor analgesia . h/o pp anemia , she was given po vit & iron . during last during course urine drug screen was positive for marijuan on 07/2016, neg in 01/2017 & neg on admission 02/22/17 . 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 No: Migraine, Seizure, Syncope, TIA, Vertigo Cardiovascular: Yes: HTN (current admission). No: Murmur Pulmonary: No: Asthma Gastrointestinal: Yes: Constipation. No: Gastritis Hepatobiliary: No: Cholelithiasis, Hepatitis B ...: 3 ...Para: 2 ( 01/16/2013 6'12", 02/23/17 8'3" girl ) ...Term: 2 ...: 0 ...Spon : 0 ...Induced : 1 (04/2013 ) ...Multiple Gestation: 0 Heme/Onc: Yes: Anemia. No: Sickle Cell Trait Infectious Disease: Yes: STD's (h/o chlamydia pos during 1st ). No: AIDS, HIV Psych: No: Addictions, Anxiety, Bipolar, Depression, Panic, Schizophrenia - Past Surgical History Past Surgical History: Yes: None Hx Myomectomy: No Hx Transabdominal Cerclage: No - Smoking History Smoking history: Never smoked Have you smoked in the past 12 months: No Aproximately how many cigarettes per day: 0 - Alcohol/Substance Use Hx Alcohol Use: No History of Substance Use: reports: Marijuana (July 2016 last used) - Social History History of Recent Travel: No Home Medications - Allergies Allergies/Adverse Reactions: Allergies Allergy/AdvReac Type Severity Reaction Status Date / Time No Known Allergies Allergy Verified 03/03/17 16:58 - Home Medications Home Medications: Ambulatory Orders Acetaminophen [Tylenol .Regular Strength -] 650 mg PO Q3H PRN tablet 02/24/17 Ferrous Sulfate [Feosol] 325 mg PO BIDWM #60 tab 02/24/17 Ibuprofen [Motrin -] 200 mg PO Q4H PRN tablet 02/24/17 Vitamins (Sjr) - 1 tab PO DAILY tablet 02/24/17 Docusate Sodium [Colace -] 100 mg PO BID #14 capsule 02/25/17 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: Vital Signs Temperature 98.7 F 03/03/17 17:20 Pulse Rate 75 03/03/17 18:00 Respiratory Rate 18 03/03/17 18:00 Blood Pressure 140/94 03/03/17 18:00 O2 Sat by Pulse Oximetry (%) Selected Entries 03/03/17 03/03/17 03/03/17 16:46 17:03 17:15 Pulse Rate 73 63 68 Blood Pressure 173/98 153/90 157/88 Weight 03/03/17 17:20 Pulse Rate 67 Blood Pressure 157/98 Weight 171 lb Constitutional: Yes: Well Nourished, Anxious, Mild Distress Eyes: Yes: WNL HENT: Yes: WNL, Normocephalic Neck: Yes: WNL, Trachea Midline Cardiovascular: Yes: WNL, Regular Rate and Rhythm Respiratory: Yes: WNL, Regular, CTA Bilaterally Gastrointestinal: Yes: WNL, Normal Bowel Sounds Renal/: Yes: WNL. No: CVA Tenderness - Left, CVA Tenderness - Right Pelvis: Yes: WNL External Genitalia: Yes: Normal Internal Exam Deferred: No Vaginal Exam: Yes: Bleeding (lochia rubra small amount) ....Post : Yes: Uterus firm, Uterus non-tender (14 weeks size , involuting ), Slight lochia rubra (perineum intact) Breast(s): Yes: WNL (not engorged , perineum intact), Other (milk secretion). No: Mass Musculoskeletal: Yes: WNL Extremities: Yes: WNL. No: Calf Tenderness Edema: Yes Edema: LLE: 1+, RLE: 1+ Neurological: Yes: WNL, Alert, Oriented ...Motor Strength: WNL Psychiatric: Yes: WNL, Alert, Oriented Labs: CBC, BMP 03/03/17 16:30 03/03/17 16:30 Laboratory Tests 03/03/17 03/03/17 03/03/17 14:50 16:30 16:30 PT with INR 12.00 H INR 1.06 PTT (Actin FS) 30.7 D Uric Acid 6.7 GGT 17 AST 10 L D ALT 21 D Urine Protein 1+ H U Marijuana (THC) Screen 03/03/17 18:15 PT with INR INR PTT (Actin FS) Uric Acid GGT AST ALT Urine Protein U Marijuana (THC) Screen Positive Problem List - Problem (1) Mild pre-eclampsia, Code(s): O14.05 - MILD TO MODERATE PRE-ECLAMPSIA, COMPLICATING THE PUERPERIUM (2) Substance abuse Code(s): F19.10 - OTHER PSYCHOACTIVE SUBSTANCE ABUSE, UNCOMPLICATED Assessment/Plan 21 yrs , s/p on 02/23/17 , severe headache, marijuana positive , Mild post preclempsia plan : IV mgSo4 ,x 24 hrs po Labetalol prn consult organizational development consultant for BP management
[2017-03-03 21:39] LABS: EPI CELLS RARE /HPF (FEW); URINE BACTERIA RARE /hpf (NONE SEEN); URINE MUCUS MODERATE
[2017-03-04] MEDS ORDERED: ACETAMINOPHEN 325 MG TABLET (FP) ONE ×2 (00:16→07:18)
[2017-03-04] MEDS: ACETAMINOPHEN 325 MG TABLET (FP) PO PRN ×2 (00:20→07:21)
[2017-03-04] MEDS: LABETALOL HCL 200 MG TABLET (FP) PO PRN ×4 (01:00→18:25)
[2017-03-04] MEDS ORDERED: LABETALOL HCL 200 MG TABLET (FP) ONE ×4 (01:00→18:25)
[2017-03-04] MEDS ORDERED: DEXTROSE 5%-NORMAL SALINE 1,000 ML IV ONE (03:00)
--- NOTE | 2017-03-04 09:06 | PN ---
Progress Note (SOAP) - Subjective Chief Complaint: c/o persistent headache, pounding, no difference in headache even after receiving Labetalol & IVMgSo4 no nausea , vomiting,blurred vision c/o numbness of fingers - Current Medications Current Medications: Active Medications Acetaminophen (Tylenol -) 650 mg PO Q4H PRN PRN Reason: FEVER OR PAIN Last Admin: 03/04/17 07:21 Dose: 650 mg Ferrous Sulfate (Feosol -) 325 mg PO BIDWM EDWAR Magnesium Sulfate (Magnesium Sulfate 20gm/500ml -) 20 gm in 500 mls @ 25 mls/ hr IVPB ASDIR EDWAR Last Admin: 03/03/17 18:15 Dose: 25 mls/hr Magnesium Sulfate (Magnesium 4gm/H20 -) 4 gm in 100 mls @ 200 mls/hr IVPB ASDIR EDWAR Last Admin: 03/03/17 17:45 Dose: 200 mls/hr Dextrose/Sodium Chloride (D5-1/2ns -) 1,000 mls @ 100 mls/hr IV ASDIR EDWAR Last Admin: 03/03/17 17:30 Dose: 100 mls/hr Dextrose/Sodium Chloride (D5-Ns -) 1,000 mls @ 100 mls/hr IV ASDIR ONE Stop: 03/04/17 12:59 Last Admin: 03/04/17 03:00 Dose: 100 mls/hr Labetalol HCl (Normodyne -) 200 mg PO Q6H PRN PRN Reason: HYPERTENSION Last Admin: 03/04/17 07:20 Dose: 200 mg Multivit/Folic Acid/Iron ( Vitamins (Sjr) -) 1 tab PO DAILY [facility] - Objective Vital Signs: Vital Signs Temperature 98.5 F 03/04/17 08:00 Pulse Rate 98 H 03/04/17 08:00 Respiratory Rate 18 03/04/17 08:00 Blood Pressure 147/88 03/04/17 08:00 O2 Sat by Pulse Oximetry (%) Constitutional: Yes: Well Nourished, Anxious, Moderate Distress Eyes: Yes: WNL, PERRL HENT: Yes: Normocephalic, Other (headache ) Neck: Yes: WNL, Supple. No: Rigid Cardiovascular: Yes: WNL, Regular Rate and Rhythm Respiratory: Yes: WNL Gastrointestinal: Yes: WNL Genitourinary: Yes: WNL, Other (voiding well . urine out put 2400 ml ) ....Post : Yes: Uterus firm (below umblicus ), Uterus non-tender, Slight lochia rubra Breast(s): Yes: WNL (not engorged ) Musculoskeletal: Yes: WNL Extremities: Yes: WNL. No: Calf Tenderness Edema: Yes Edema: LLE: 1+, RLE: 1+ Integumentary: Yes: Tattoos Neurological: Yes: WNL, Alert, Oriented, Babinski negative. No: Aphasia, Confusion, Seizure, Tremors, Unsteady Gait, Weakness ...Motor Strength: Yes: WNL Psychiatric: Yes: WNL, Alert, Oriented Labs Lab Results: CBC, BMP 03/03/17 16:30 03/03/17 16:30 Problem List - Problems (1) Mild pre-eclampsia, Code(s): O14.05 - MILD TO MODERATE PRE-ECLAMPSIA, COMPLICATING THE PUERPERIUM (2) Substance abuse Code(s): F19.10 - OTHER PSYCHOACTIVE SUBSTANCE ABUSE, UNCOMPLICATED Assessment/Plan pt s/p post , headache , non responsive to po labetalol, & IV MgSo4 . mild preclempsia suspected, receiving Iv MgSo4 Plan Dr Owens consult pending Neuro consult
[2017-03-04] MEDS: PRENATAL VITAMINS W/ FOLIC ACID TABLET (FP) PO SCH (10:30)
[2017-03-04] MEDS: FERROUS SO4 325 MG TABLET (FP) PO SCH ×2 (10:33→17:30)
--- NOTE | 2017-03-04 10:38 | CON.NEP ---
Consult Consult Specialty:: Nephrology Referred by:: Mine Richardson Reason for Consultation:: hypertension - History of Present Illness Chief Complaint: Headache History of Present Illness: This is a 21 year old woman with no significant PMHx who presents with complaints of headache and found to have hypertension. S/p Vaginal Delivery on the . Pt w/o any history of hypertension. BP mostly within normal limits on the admission she was delivered on. STEELE is Frontal and has some vision changes. Pt also reports some numbness in the hand. 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 No: Migraine, Seizure, Syncope, TIA, Vertigo Cardio/Vascular: Yes: HTN (current admission). No: Murmur Pulmonary: No: Asthma Gastrointestinal: Yes: Constipation. No: Gastritis Hepatobiliary: No: Cholelithiasis, Hepatitis B ...LMP: 05/24/16 Infectious Disease: Yes: STD's (h/o chlamydia pos during 1st ). No: AIDS, HIV Psych: No: Addictions, Anxiety, Bipolar, Depression, Panic, Schizophrenia - Past Surgical History Past Surgical History: Yes: None - Alcohol/Substance Use Hx Alcohol Use: No History of Substance Use: reports: Marijuana (July 2016 last used) - Smoking History Smoking history: Never smoked Have you smoked in the past 12 months: No Aproximately how many cigarettes per day: 0 - Social History History of Recent Travel: No Home Medications - Allergies Allergies/Adverse Reactions: Allergies Allergy/AdvReac Type Severity Reaction Status Date / Time No Known Allergies Allergy Verified 03/03/17 16:58 - Home Medications Home Medications: Ambulatory Orders Acetaminophen [Tylenol .Regular Strength -] 650 mg PO Q3H PRN tablet 02/24/17 Ferrous Sulfate [Feosol] 325 mg PO BIDWM #60 tab 02/24/17 Ibuprofen [Motrin -] 200 mg PO Q4H PRN tablet 02/24/17 Vitamins (Sjr) - 1 tab PO DAILY tablet 02/24/17 Docusate Sodium [Colace -] 100 mg PO BID #14 capsule 02/25/17 Family Disease History - Family Disease History Family Disease History: Other: Grandparent (hypertension) Review of Systems - Review of Systems Constitutional: reports: No Symptoms Eyes: reports: Blurred Vision Neck: reports: No Symptoms Cardiovascular: reports: No Symptoms Respiratory: reports: No Symptoms Gastrointestinal: reports: No Symptoms Genitourinary: reports: No Symptoms Musculoskeletal: reports: No Symptoms Neurological: reports: Headache Nephrology Consult - Height Height: 5 ft 2 in - Weight Weight: 77.564 kg - BMI Body Mass Index (BMI): 31.2 - Lab Results CBC,BMP: CBC, BMP 03/03/17 16:30 03/03/17 16:30 Anion Gap: Anion Gap Anion Gap 8 (8-16) 03/03/17 16:30 - Physical Examination Vital Signs: Vital Signs Temperature 98.2 F 03/04/17 10:00 Pulse Rate 89 03/04/17 10:00 Respiratory Rate 18 03/04/17 10:00 Blood Pressure 138/87 03/04/17 10:00 O2 Sat by Pulse Oximetry (%) Constitutional: Yes: Well Nourished, No Distress, Calm HENT: Yes: Atraumatic Neck: Yes: Supple Extremities: No: Cold, Cool, Cyanosis Edema: Yes Edema: LLE: Trace, RLE: Trace Assessment/Plan 21 year old woman with no significant PMHx who presents with complaints of headache and found to have hypertension. # Hypertension etiology uncertein at this time ? if secondary to STEELE as STEELE symptoms not resolved with better BP control UA with 1+ protein but not a great sample UPCR is pending no thrombocytopenia, anemia, LFT abnormalities continue Labetalol 200mg Q6h for SBP > 140 or DBP > 90 pain control w/o opiods hold IVF continue Mg as per Ob #Headache pain control neurology consult #s/p Delivery supportive care Thank you Brandon Owens DO
[2017-03-04] MEDS ORDERED: DEXTROSE 5%-0.45% SALINE 1,000 ML IV SCH (10:45)
[2017-03-04 12:55] LABS: URINE CREATININE 27.7 mg/dL (20-320)
[2017-03-04 12:56] LABS: RATIO URIN PROTEIN/URIN CREAT 0.758 MG/DL
--- NOTE | 2017-03-04 13:21 | PN ---
Progress Note (short form) - Note Progress Note: Dr Lockwood neurologist call back, he requested Brain MRI & venogram to r/o vein thrombosis or rare c/o hemangioblastoma Problem List - Problems (1) Mild pre-eclampsia, Code(s): O14.05 - MILD TO MODERATE PRE-ECLAMPSIA, COMPLICATING THE PUERPERIUM (2) Substance abuse Code(s): F19.10 - OTHER PSYCHOACTIVE SUBSTANCE ABUSE, UNCOMPLICATED
[2017-03-04] MEDS ORDERED: ACETAMINOPHEN/CAFFEINE/BUTALBITAL 1 TAB ONE (13:36)
[2017-03-04] MEDS: ACETAMINOPHEN/CAFFEINE/BUTALBITAL 1 TAB PO PRN (13:50)
--- NOTE | 2017-03-04 17:56 | CON.NEURO ---
Consult - History of Present Illness History of Present Illness: 21 year old woman with no significant PMHx, s/p 02/23, ( 2 epidural during delivery) readmitted 03/03, for STEELE starting 02/28, who presents with complaints of headache and found to have hypertension. -- doing somewhat better as per nurse . no major orthostatic component; no NV, -P, -P, no stiff neck ; no fever; labetolol and fiorecet helped. MRI Reviewed IMPRESSION: 1. No evidence of thrombosis of the deep cerebral veins or dural sinuses. 2. Prominent pituitary gland is within normal for recent status. Otherwise, normal noncontrast MRI of the brain. 3. Nonspecific T2 signal within the subcutaneous fat overlying the right parietal bone is nonspecific, with differential considerations including posttraumatic and infectious/inflammatory changes.. Please correlate clinically with physical exam and history. 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 No: Migraine, Seizure, Syncope, TIA, Vertigo Cardio/Vascular: Yes: HTN (current admission). No: Murmur Pulmonary: No: Asthma Gastrointestinal: Yes: Constipation. No: Gastritis Hepatobiliary: No: Cholelithiasis, Hepatitis B ...LMP: 05/24/16 Infectious Disease: Yes: STD's (h/o chlamydia pos during 1st ). No: AIDS, HIV Psych: No: Addictions, Anxiety, Bipolar, Depression, Panic, Schizophrenia - Past Surgical History Past Surgical History: Yes: None - Alcohol/Substance Use Hx Alcohol Use: No History of Substance Use: reports: Marijuana (July 2016 last used) - Smoking History Smoking history: Never smoked Have you smoked in the past 12 months: No Aproximately how many cigarettes per day: 0 - Social History History of Recent Travel: No Home Medications - Allergies Allergies/Adverse Reactions: Allergies Allergy/AdvReac Type Severity Reaction Status Date / Time No Known Allergies Allergy Verified 03/03/17 16:58 - Home Medications Home Medications: Ambulatory Orders Acetaminophen [Tylenol .Regular Strength -] 650 mg PO Q3H PRN tablet 02/24/17 Ferrous Sulfate [Feosol] 325 mg PO BIDWM #60 tab 02/24/17 Ibuprofen [Motrin -] 200 mg PO Q4H PRN tablet 02/24/17 Vitamins (Sjr) - 1 tab PO DAILY tablet 02/24/17 Docusate Sodium [Colace -] 100 mg PO BID #14 capsule 02/25/17 Family Disease History - Family Disease History Family Disease History: Other: Grandparent (hypertension) Physical Exam-Neuro Vital Signs: Vital Signs Temperature 98.5 F 03/04/17 14:00 Pulse Rate 72 03/04/17 17:00 Respiratory Rate 18 03/04/17 17:00 Blood Pressure 146/94 03/04/17 17:00 O2 Sat by Pulse Oximetry (%) Constitutional: Yes: Well Nourished, No Distress (Awake, comfortable, following 3 steps, EOMI, no facial, motor 5/5, reflexes symmetric ) Labs: CBC, BMP 03/03/17 16:30 03/03/17 16:30 INR, PTT INR 1.06 (0.82-1.09) 03/03/17 16:30 Imaging - Results MRI: Report Reviewed, Image Reviewed Problem List - Problems (1) Headache Code(s): R51 - HEADACHE (2) Vaginal delivery Code(s): O80 - ENCOUNTER FOR FULL-TERM UNCOMPLICATED DELIVERY Assessment/Plan post - STEELE, ? migrainous vs hypertensive ; no evidence of post epidural STEELE , sinus thrombosis or PRES or meningitis, MRI (-). would continue labetolol , FIORECET PRN (not nursing) ; can add medrol if needed if STEELE continues though appears comfortable now. please call BACK PRN Dr Vega [phone]
[2017-03-04] MEDS: MAGNESIUM 4GM/H20 - 4 GM/100 ML IVPB IVPB SCH (18:27)
[2017-03-04] MEDS: MAGNESIUM SULFATE 20GM/500ML - 20 GM/500 ML INFUS.BAG IVPB SCH (18:28)
[2017-03-04] MEDS ORDERED: LABETALOL HCL 200 MG TABLET (FP) PO PRN (20:34)
[2017-03-04] MEDS ORDERED: NIFEdipine E.R. 30 MG TABLET (FP) PO ONE (21:45)
[2017-03-05] MEDS: ACETAMINOPHEN/CAFFEINE/BUTALBITAL 1 TAB PO PRN (00:14)
--- NOTE | 2017-03-05 07:27 | DS ---
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: Vital Signs Temperature 97.5 F L 03/04/17 21:00 Pulse Rate 114 H 03/05/17 06:00 Respiratory Rate 20 03/05/17 06:00 Blood Pressure 141/83 03/05/17 06:00 O2 Sat by Pulse Oximetry (%) Selected Entries 03/04/17 03/04/17 03/04/17 01:00 06:00 07:00 Blood Pressure 157/83 137/68 160/102 03/04/17 03/04/17 03/04/17 08:00 18:00 19:00 Blood Pressure 147/88 160/100 148/106 03/04/17 03/05/17 21:00 02:00 Blood Pressure 180/107 139/85 Selected Entries 03/05/17 12:00 Pulse Rate 97 H Blood Pressure 133/81 Blood Pressure 98 Mean Constitutional: Yes: Well Nourished, No Distress Eyes: Yes: WNL HENT: Yes: WNL, Normocephalic, Other (headache scale2/10) Neck: Yes: WNL, Supple Cardiovascular: Yes: WNL, Regular Rate and Rhythm Respiratory: Yes: WNL, Regular, CTA Bilaterally Gastrointestinal: Yes: WNL ....Post : Yes: Uterus firm, Uterus non-tender, Slight lochia rubra ( perineum intact) Breast(s): Yes: WNL (soft, no BF) Musculoskeletal: Yes: WNL Extremities: Yes: WNL. No: Calf Tenderness Edema: Yes Edema: LLE: Trace, RLE: Trace Integumentary: Yes: Tattoos Neurological: Yes: WNL, Alert, Oriented. No: Aphasia, Confusion, Tingling, Tremors, Weakness ...Motor Strength: WNL Psychiatric: Yes: WNL, Alert, Oriented Labs: CBC, BMP 03/03/17 16:30 03/03/17 16:30 Laboratory Tests 03/04/17 11:43 U Random Total Protein 21 H Urine Creatinine 27.7 Protein/Creatinin Ratio 0.758 Discharge Summary Reason For Visit: POST PRE-ECLAMPSIA, HEADACHE Current Active Problems Headache (Acute) Mild pre-eclampsia, (Acute) Substance abuse (Acute) Procedures: Principal: MRI BRAIN , MRI BRAIN A Other Procedures: Labs , Magensium levels Hospital Course: IV MgSo4 24 hrs Nephrology consult with Dr Owens , Rx po labetalol 200 mg q 6h for 24 hrs & po labetalol 300 mg prn , followed by Nifedipine 30 xl Condition: Stable - Instructions Diet, Activity, Other Instructions: Discharge Instructions * Out of Bed * * Regular Diet * Serena Care * Avoid sex for 6 weeks. * RTC 1 week for f/u BP * Follow with PCP/Dr Owens for High BP . * take bP meds as ordered by Dr Owens If you experience excessive bleeding or fever over 101 degrees, call doctor, the clinic or go to the Emergency Room. pt instructed to follow up with dr Owens in one week. also to call md if c/o headache, blurred vision, or epigastric discomfort. meds prescribed by dr Owens for elevated bp called into pharmacy; to be taken as prescribed: procardia xl 30 mg po daily as per dr Owens. Referrals: Mine Avila MD [Staff Physician] - Disposition: HOME - Home Medications Comprehensive Discharge Medication List: Ambulatory Orders Acetaminophen [Tylenol .Regular Strength -] 650 mg PO Q3H PRN tablet 02/24/17 Ferrous Sulfate [Feosol] 325 mg PO BIDWM #60 tab 02/24/17 Ibuprofen [Motrin -] 200 mg PO Q4H PRN tablet 02/24/17 Vitamins (Sjr) - 1 tab PO DAILY tablet 02/24/17 Docusate Sodium [Colace -] 100 mg PO BID #14 capsule 02/25/17
[2017-03-05 08:42] VITALS: TEMP 98.9
[2017-03-05] MEDS: PRENATAL VITAMINS W/ FOLIC ACID TABLET (FP) PO SCH (09:17)
[2017-03-05] MEDS: FERROUS SO4 325 MG TABLET (FP) PO SCH (09:17)
[2017-03-05] MEDS ORDERED: NIFEdipine E.R. 30 MG TABLET (FP) PO SCH (10:00)
--- NOTE | 2017-03-05 10:59 | PN ---
Progress Note (short form) - Note Progress Note: Renal follow up for hypertension Pt seen and examined at the bedside awake and alert no acute complaints no sob, chest pain, abd pain, N/V no STEELE at this time BP has been better controlled on Nifedipine ER Vital Signs Temperature 98.9 F 03/05/17 08:00 Pulse Rate 90 03/05/17 10:00 Respiratory Rate 20 03/05/17 10:00 Blood Pressure 137/86 03/05/17 10:00 O2 Sat by Pulse Oximetry (%) Intake & Output 03/02/17 03/03/17 03/04/17 03/05/17 23:59 23:59 23:59 23:59 Intake Total 100 2784 Output Total 700 4301 Balance -600 -1517 Weight 77.564 kg 77.564 kg NAD awake and alert no LE edema CBC, BMP 03/03/17 16:30 03/03/17 16:30 Current Medications Acetaminophen (Tylenol -) 650 mg PO Q4H PRN PRN Reason: FEVER OR PAIN Last Admin: 03/04/17 07:21 Dose: 650 mg Acetaminophen/Butalbital/Caffeine (Fioricet -) 1 tablet PO Q6H PRN PRN Reason: FEVER OR PAIN Last Admin: 03/05/17 00:14 Dose: 1 tablet Ferrous Sulfate (Feosol -) 325 mg PO BIDWM [facility] Last Admin: 03/05/17 09:17 Dose: 325 mg Labetalol HCl (Normodyne -) 300 mg PO Q6H PRN PRN Reason: HYPERTENSION Last Admin: 03/05/17 06:33 Dose: 300 mg Nifedipine (Procardia Xl -) 30 mg PO DAILY [facility] Last Admin: 03/05/17 10:06 Dose: 30 mg Multivit/Folic Acid/Iron ( Vitamins (Sjr) -) 1 tab PO DAILY [facility] Last Admin: 03/05/17 09:17 Dose: 1 tab 21 year old woman with no significant PMHx who presents with complaints of headache and found to have hypertension. # Hypertension No significant proteinuria to indicative pre-eclampsia pt can be discharged on nifedpine ER 30mg Daily ([facility]) to follow up in our office in 1 week to hold meds if pt is dizzy or lightheaded low salt diet #Headache on Fioricet #s/p Delivery supportive care thank you for allowing us to take part in the care of this patient
[2017-03-05 12:07] VITALS: BP 133/81; PULSE 97
== END 2017-03-05 12:40 | disposition home or self-care (01) | DRG 561 ==
LOC: JDEL 15:00 → JLDR 17:20 → J3W 03-04 19:37
PROVIDERS: ADMIT Obstetrics & Gynecology; ATTEND Obstetrics & Gynecology
DX: O16.5 Unspecified maternal hypertension, complicating the puerperium (principal); O14.05 Mild to moderate pre-eclampsia, complicating the puerperium; O90.89 Other complications of the puerperium, not elsewhere classified; F19.10 Other psychoactive substance abuse, uncomplicated; R51 Headache
CPT/HCPCS: 36415; 70544-TC; 70551-TC; 80048; 80307; 81003; 81015; 82570; 82977; 83010; 83735; 84156; 84450; 84460; 84550; 85025; 85044; 85610; 85730; 86850; 86900; 86901

== ENCOUNTER 2018-09-16 10:26 | Emergency (ER) | payer OTHER ==
[2018-09-16 10:52] VITALS: BMI 24.7
[2018-09-16] MEDS ORDERED: ACETAMINOPHEN 500 MG TABLET (FP) PO ONE (11:03)
[2018-09-16] MEDS ORDERED: ACETAMINOPHEN 325 MG TABLET (FP) ONE (11:05)
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
[2018-09-16 11:56] LABS: EPI CELLS 10.4 /HPF (0-5/HPF); HYALINE CASTS 17 /lpf (0-8); URINE APPEARANCE CLOUDY; URINE BACTERIA 2.5 /hpf (NEGATIVE); URINE BILIRUBIN NEGATIVE (NEGATIVE); URINE COLOR YELLOW; URINE GLUCOSE (UA) NEGATIVE (NEGATIVE); URINE KETONE TRACE (NEGATIVE); URINE LEUK ESTERASE NEGATIVE (NEGATIVE); URINE NITRITE NEGATIVE (NEGATIVE); URINE PROTEIN 1+ (NEGATIVE); URINE RBC 2 /hpf (0-4); URINE WBC 1 /hpf (0-5)
[2018-09-16 12:21] LABS: HCG,QUALITATIVE URINE Negative
[2018-09-16 13:03] VITALS: BP 118/78; PULSE 82; TEMP 98.2
== END 2018-09-16 13:03 | disposition home or self-care (01) ==
LOC: JER 10:26
DX: S00.03XA Contusion of scalp, initial encounter (principal); S40.022A Contusion of left upper arm, initial encounter; S40.021A Contusion of right upper arm, initial encounter; S80.12XA Contusion of left lower leg, initial encounter; S80.11XA Contusion of right lower leg, initial encounter; Y04.2XXA Assault by strike against or bumped into by another person, initial encounter; Y93.89 Activity, other specified; Y92.038 Other place in apartment as the place of occurrence of the external cause; Y99.8 Other external cause status; Y07.9 Unspecified perpetrator of maltreatment and neglect
CPT/HCPCS: 70450-TC; 81003; 84703; 99281-25

== ENCOUNTER 2022-06-15 05:04 | Emergency (ER) | payer OTHER ==
[2022-06-15] MEDS ORDERED: DIPHTH,PERTUSS(ACELL),TET 0.5 ML DISP.SYRIN IM ONE ×2 (05:24→06:34)
[2022-06-15 05:26] VITALS: BMI 24.7
[2022-06-15] MEDS ORDERED: SODIUM CHLORIDE 0.9% 500 ML INFUS.BAG IV ONE (05:35)
[2022-06-15] MEDS ORDERED: FENTANYL CITRATE/PF 50 MCG/ML VIAL ONE (05:35)
[2022-06-15 05:38] LABS: BASO % 0.6 % (0-2.0); EOS % 0.2 % (0-4.5); HEMATOCRIT 37.3 % (32.4-45.2); HEMOGLOBIN 12.9 GM/dL (10.7-15.3); LYMPH % 20.8 % (8-40); MCH 32.7 pg (25.7-33.7); MCHC 34.7 g/dl (32.0-36.0); MEAN CELL VOLUME 94.3 fl (80-96); MEAN PLT VOLUME 7.7 fl (7.5-11.1); MONO % 5.3 % (3.8-10.2); NEUT % 73.1 % (42.8-82.8); PLATELET COUNT 292 10^3/uL (134-434); RBC 3.95 M/mm3 (3.60-5.2); RDW 13.5 % (11.6-15.6); WHITE BLOOD COUNT 9.7 K/mm3 (4.0-10.0)
[2022-06-15 05:57] LABS: INR 1.1 (0.83-1.09); PROTHROMBIN TIME (PATIENT) 12.8 SEC (9.7-13.0)
[2022-06-15 06:00] LABS: ACTIVATED PTT 28.7 SECONDS (25.2-36.5)
[2022-06-15 06:02] LABS: ALBUMIN 4.1 g/dl (3.4-5.0); BLOOD UREA NITROGEN 8.4 mg/dL (7-18); CALCIUM 8.7 mg/dL (8.5-10.1)
[2022-06-15 06:05] LABS: CREATININE 0.8 mg/dL (0.55-1.3)
[2022-06-15 06:07] LABS: BILIRUBIN,TOTAL 0.2 mg/dL (0.2-1); TOT PROT 7.4 g/dl (6.4-8.2)
[2022-06-15] MEDS ORDERED: CEFAZOLIN SODIUM 2 GM VIAL IVPB ONE (06:29)
[2022-06-15 07:41] VITALS: BP 131/101; PULSE 119; RESP 19; TEMP 97.9
== END 2022-06-15 07:53 | disposition short-term general hospital (02) ==
LOC: JER 05:04
PROC: 0HQ6XZZ Repair Back Skin, External Approach (ICD-10-PCS; principal; 2022-06-15)
PROC: 3E03329 Introduction of Other Anti-infective into Peripheral Vein, Percutaneous Approach (ICD-10-PCS; 2022-06-15)
PROC: 3E033GC Introduction of Other Therapeutic Substance into Peripheral Vein, Percutaneous Approach (ICD-10-PCS; 2022-06-15)
PROC: 3E0234Z Introduction of Serum, Toxoid and Vaccine into Muscle, Percutaneous Approach (ICD-10-PCS; 2022-06-15)
DX: S41.032A Puncture wound without foreign body of left shoulder, initial encounter (principal); X99.1XXA Assault by knife, initial encounter; Z20.822 Contact with and (suspected) exposure to COVID-19
CPT/HCPCS: 0241U-QW; 12001-25; 36415; 71045-TC-FY; 71260-TC; 80053; 84703; 85025; 85610; 85730; 90471; 90715; 96374; 96375; 99285-25; Q9967

== ENCOUNTER 2024-01-15 09:44 | Emergency (ER) | payer OTHER ==
[2024-01-15 09:55] VITALS: TEMP 99; BMI 26.5
[2024-01-15] MEDS ORDERED: DEXAMETHASONE SOD PHOSPHATE 10 MG/1 ML VIAL ONE (10:55)
[2024-01-15] MEDS ORDERED: FAMOTIDINE 20 MG TABLET ONE (10:55)
[2024-01-15] MEDS: FAMOTIDINE 20 MG TABLET PO ONE (11:09)
[2024-01-15] MEDS: DEXAMETHASONE SOD PHOSPHATE 10 MG/1 ML VIAL IM ONE (11:09)
[2024-01-15 11:22] VITALS: BP 130/94; PULSE 76; RESP 20
== END 2024-01-15 11:23 | disposition home or self-care (01) ==
LOC: JER 09:44
PROC: 3E023GC Introduction of Other Therapeutic Substance into Muscle, Percutaneous Approach (ICD-10-PCS; principal; 2024-01-15)
PROC: 3E023GC Introduction of Other Therapeutic Substance into Muscle, Percutaneous Approach (ICD-10-PCS; 2024-01-15)
DX: R21 Rash and other nonspecific skin eruption (principal); T49.4X5A Adverse effect of keratolytics, keratoplastics, and other hair treatment drugs and preparations, initial encounter
CPT/HCPCS: 99284-25; J1100

== ENCOUNTER 2024-03-09 10:12 | Emergency (ER) | payer OTHER ==
[2024-03-09 10:40] VITALS: BP 131/83; PULSE 96; RESP 17; TEMP 99.3; BMI 25.7
[2024-03-09] MEDS ORDERED: ACETAMINOPHEN 325 MG TABLET (FP) ONE (11:01)
[2024-03-09] MEDS: ACETAMINOPHEN 325 MG TABLET (FP) PO ONE (11:22)
[2024-03-09 11:29] LABS: EPI CELLS >36 /uL (0-25.1); HYALINE CASTS 3 /uL (0-3.1); URINE APPEARANCE CLOUDY; URINE BILIRUBIN NEGATIVE (NEGATIVE); URINE COLOR YELLOW; URINE GLUCOSE (UA) NEGATIVE (NEGATIVE); URINE KETONE TRACE (NEGATIVE); URINE LEUK ESTERASE NEGATIVE (NEGATIVE); URINE NITRITE NEGATIVE (NEGATIVE); URINE PROTEIN 2+ (NEGATIVE); URINE RBC 557 /uL (0-23.9); URINE WBC 30 /uL (0-25.8)
[2024-03-09 11:33] LABS: URINE BACTERIA 419.6 /uL (0-1359)
[2024-03-09 11:39] LABS: INR 0.94 (0.83-1.09); PROTHROMBIN TIME (PATIENT) 10.8 SEC (9.7-13.0)
[2024-03-09 11:41] LABS: ACTIVATED PTT 26.6 SECONDS (25.2-36.5); BASO % 0.3 % (0-2.0); EOS % 1.2 % (0-4.5); HEMATOCRIT 41.3 % (32.4-45.2); HEMOGLOBIN 13.9 GM/dL (10.7-15.3); LYMPH % 12.8 % (8-40); MCH 32.3 pg (25.7-33.7); MCHC 33.6 g/dl (32.0-36.0); MEAN CELL VOLUME 96.2 fl (80-96); MEAN PLT VOLUME 7.7 fl (7.5-11.1); MONO % 5.3 % (3.8-10.2); NEUT % 80.4 % (42.8-82.8); PLATELET COUNT 276 10^3/uL (134-434); RDW 13.4 % (11.6-15.6); WHITE BLOOD COUNT 11.1 K/mm3 (4.0-10.0)
[2024-03-09 11:59] LABS: POTASSIUM 4.8 mmol/L (3.5-5.1)
[2024-03-09 12:02] LABS: CALCIUM 9.4 mg/dL (8.5-10.1)
[2024-03-09 12:03] LABS: ALBUMIN 3.8 g/dl (3.4-5.0)
[2024-03-09 12:06] LABS: CREATININE 0.7 mg/dL (0.55-1.3)
[2024-03-09 12:07] LABS: BILIRUBIN,TOTAL 0.4 mg/dL (0.2-1); TOT PROT 6.9 g/dl (6.4-8.2)
[2024-03-09 14:00] LABS: HIV INTERPRETATION NEGATIVE (NEGATIVE)
[2024-03-09] MEDS ORDERED: KETOROLAC TROMETHAMINE 15 MG/ML VIAL IVPUSH ONE (14:46)
[2024-03-09] MEDS ORDERED: KETOROLAC TROMETHAMINE 30 MG/1 ML VIAL ONE (15:28)
[2024-03-09] MEDS: KETOROLAC TROMETHAMINE 30 MG/1 ML VIAL IM ONE (15:37)
== END 2024-03-09 16:15 | disposition home or self-care (01) ==
LOC: JER 10:12
DX: O9A.219 Injury, poisoning and certain other consequences of external causes complicating pregnancy, unspecified trimester (principal); S05.11XA Contusion of eyeball and orbital tissues, right eye, initial encounter; O20.9 Hemorrhage in early pregnancy, unspecified; O26.899 Other specified pregnancy related conditions, unspecified trimester; R10.30 Lower abdominal pain, unspecified; R10.2 Pelvic and perineal pain; Y04.8XXA Assault by other bodily force, initial encounter; Z3A.00 Weeks of gestation of pregnancy not specified
CPT/HCPCS: 36415; 76817-TC; 80053; 81003; 84702; 85025; 85610; 85730; 86632; 86803; 86850; 86900; 86901; 87389; 99284-25